=== PATIENT | female | born 1980 | race Caucasian/White ===

== ENCOUNTER → 2017-10-30 | Outpatient (CLI) | payer OTHER | LOC: BMCIMAGING 16:07 | PROVIDERS: ATTEND Internal Medicine Rheumatology | DX: Z13.828 Encounter for screening for other musculoskeletal disorder (principal) ==

== ENCOUNTER → 2019-01-16 | Outpatient (CLI) | payer OTHER | LOC: BMCIMAGING 11:02 | PROVIDERS: ATTEND Internal Medicine Rheumatology | DX: Z13.828 Encounter for screening for other musculoskeletal disorder (principal) ==